=== PATIENT | male | born 1985 | race Caucasian/White ===

== ENCOUNTER 2016-09-02 11:53 | Inpatient (IN) | payer OTHER ==
[~2016-09-02] VITALS: Ht 180.3 cm; Wt 73.5 kg
[2016-09-02 12:24] LABS: BASOPHIL % 0.4 % (0-2); PLATELET COUNT 364 x10^3mcL (130-400)
[2016-09-02 12:34] LABS: CALCIUM 9.4 mg/dL (8.5-10.1); CARBON DIOXIDE 27.4 mmol/L (21-32); CHLORIDE SERUM 102 mmol/L (98-107); CREATININE SERUM 0.8 mg/dL (0.7-1.3); GFR1 > 60 mL/min; GLUCOSE SERUM 121 mg/dL (74-106); POTASSIUM SERUM 3.5 mmol/L (3.5-5.1); SODIUM SERUM 140 mmol/L (136-145)
[2016-09-02 12:39] LABS: ALBUMIN 4.8 g/dL (3.4-5.0); ALKALINE PHOSPHATASE 78 U/L (46-116); ALT/SGPT 39 U/L (16-63); AST/SGOT 20 U/L (15-37); BILIRUBIN TOTAL 0.38 mg/dL (0.20-1.00)
[2016-09-02 12:40] LABS: TOTAL PROTEIN, SERUM 8.4 g/dL (6.4-8.2)
[2016-09-02 15:08] VITALS: BP 164/108
[2016-09-02 15:21] LABS: MAGNESIUM 2.3 mg/dL (1.8-2.4); PHOSPHOROUS 3.1 mg/dL (2.5-4.9)
[2016-09-02 15:23] LABS: CHOLESTEROL/HDL RATIO 2.4
[2016-09-02 15:30] LABS: T3 TOTAL 1.24 ng/mL
[2016-09-02 15:31] LABS: FREE T4 1.3 ng/dL (0.76-1.46); FREE THYROXINE INDEX 3.3 ug/dL (1.4-4.5); T4(THYROXINE) 9.3 ug/dL (4.7-13.3)
[2016-09-02 17:15] VITALS: BP 160/96
[2016-09-02 19:34] LABS: microscopic required? NO
[2016-09-02 19:40] LABS: UA SPECIFIC GRAVITY 1.015 (1.005-1.035); urine erythrocyte NEGATIVE (NEGATIVE)
[2016-09-02 19:49] LABS: AMPHETAMINE QUAL UR NONE DETECTED (NEG <=1000)
[2016-09-02 21:41] VITALS: BP 152/97
[2016-09-03 05:48] VITALS: BP 147/96
[2016-09-03 06:15] LABS: BASOPHIL % 0.3 % (0-2); PLATELET COUNT 357 x10^3mcL (130-400); RED CELL DISTRIBUTION WIDTH 14.3 % (11.5-14.5)
[2016-09-03 06:16] LABS: CALCIUM 9.5 mg/dL (8.5-10.1); CHLORIDE SERUM 102 mmol/L (98-107); CREATININE SERUM 0.8 mg/dL (0.7-1.3); GFR1 > 60 mL/min; GLUCOSE SERUM 113 mg/dL (74-106); POTASSIUM SERUM 3.8 mmol/L (3.5-5.1); SODIUM SERUM 141 mmol/L (136-145)
[2016-09-03 10:00] VITALS: BP 145/97
[2016-09-03 17:12] VITALS: BP 158/112
[2016-09-03 20:33] VITALS: BP 144/95
[2016-09-04 06:04] VITALS: BP 165/109
[2016-09-04 06:26] LABS: CALCIUM 9.4 mg/dL (8.5-10.1); CARBON DIOXIDE 28.6 mmol/L (21-32); CHLORIDE SERUM 105 mmol/L (98-107); GFR1 > 60 mL/min; GLUCOSE SERUM 95 mg/dL (74-106); MAGNESIUM 2.3 mg/dL (1.8-2.4); POTASSIUM SERUM 3.7 mmol/L (3.5-5.1); SODIUM SERUM 144 mmol/L (136-145)
[2016-09-04 06:30] VITALS: BP 143/93
[2016-09-04 09:46] VITALS: BP 166/102
[2016-09-04 12:17] VITALS: Ht 180.3 cm; Wt 73.5 kg
[2016-09-04] MEDS ORDERED: ZES5 PO (13:25)
[2016-09-04] MEDS ORDERED: METP PO (13:25)
[2016-09-04] MEDS ORDERED: THERA TABS1 TAB PO (13:25)
[2016-09-04] MEDS ORDERED: ATI1 PO (13:25)
[2016-09-04] MEDS ORDERED: METOPROLOL TART25 M1 PO (13:25)
[2016-09-04 13:26] VITALS: BP 121/75
[2016-09-04 14:10] VITALS: BP 128/87
[2016-09-04] MEDS ORDERED: PRO40 PO (15:39)
[2016-09-04] MEDS ORDERED: COL250 PO (17:01)
== END 2016-09-04 18:32 | disposition home or self-care (01) | DRG 392 ==
LOC: EDBD 11:53 → ED 11:53 → EDBD 14:09 → DU 14:09
PROVIDERS: Emergency Medicine; Internal Medicine; ADMIT Family Medicine
PROC: 0DB68ZX Excision of Stomach, Via Natural or Artificial Opening Endoscopic, Diagnostic (ICD-10-PCS; principal; 2016-09-04 12:00)
DX: K21.0 Gastro-esophageal reflux disease with esophagitis (principal); K29.20 Alcoholic gastritis without bleeding; I16.0 Hypertensive urgency; F12.10 Cannabis abuse, uncomplicated; F10.20 Alcohol dependence, uncomplicated; F32.9 Major depressive disorder, single episode, unspecified; G47.00 Insomnia, unspecified; F17.210 Nicotine dependence, cigarettes, uncomplicated; I10 Essential (primary) hypertension; F41.0 Panic disorder [episodic paroxysmal anxiety]; Z88.0 Allergy status to penicillin
CPT/HCPCS: 43235; 83880; 84439; G0480; J1200; J1610; J2060; J2250; J2310; J3010; J3411; J3475; J3490; J7030